=== PATIENT | female | born 1975 | race Caucasian/White ===

== ENCOUNTER 2020-12-19 00:12 | Emergency (ER) | payer OTHER ==
[2020-12-19 00:18] VITALS: RESP 16
--- NOTE | 2020-12-19 00:54 | ED ---
Chest Pain HPI - General Chief Complaint: Chest Pain Stated Complaint: Chest Pain Time Seen by Provider: 12/19/20 00:22 Source: patient Mode of arrival: wheelchair Limitations: no limitations - History of Present Illness MD Complaint: chest pain Onset/Timin -: hour(s) Onset: during rest Pain Location: substernal Pain Radiation: RUE Severity: moderate Quality: dull Consistency: constant Improves With: nothing Worsens With: inspiration Treatments Prior to Arrival: none - Related Data On Oral Contraceptives: No Home Medications Medication Instructions Recorded Confirmed Omeprazole [PriLOSEC] 10 mg PO AC-BID 05/21/15 05/21/15 Previous Rx's Medication Instructions Recorded Erythromycin Ophth Oint [Romycin 1 applic LEFT EYE QID #1 tube 05/21/15 Ophth Oint] Ibuprofen [Motrin] 600 mg PO Q8HR PRN #12 tab 05/21/15 traMADol HCl [Ultram] 50 mg PO Q6H PRN #8 tab 05/21/15 Allergies Allergy/AdvReac Type Severity Reaction Status Date / Time Penicillins Allergy Rash/Hives Verified 12/19/20 00:14 Review of Systems ROS Statement: Those systems with pertinent positive or pertinent negative responses have been documented in the HPI. ROS Other: All systems not noted in ROS Statement are negative. Constitutional: Denies: fever, chills Respiratory: Denies: cough, dyspnea Cardiovascular: Reports: chest pain. Denies: palpitations, orthopnea, edema, syncope Gastrointestinal: Denies: abdominal pain, nausea, vomiting, diarrhea Genitourinary: Denies: dysuria, hematuria Musculoskeletal: Denies: back pain Skin: Denies: rash Neurological: Denies: headache, weakness, numbness EKG Findings - EKG Comments: EKG Findings:: Possible old anterior infarct. - EKG Results: EKG: interpreted by ERMD, sinus rhythm (Rate 87 bpm), normal axis, normal ST/T Past Medical History Past Medical History: GERD/Reflux History of Any Multi-Drug Resistant Organisms: None Reported Past Surgical History: Tubal Ligation Past Psychological History: No Psychological Hx Reported Smoking Status: Never smoker Past Alcohol Use History: Occasional Past Drug Use History: None Reported General Exam Limitations: no limitations General appearance: alert, in no apparent distress Head exam: Present: atraumatic, normocephalic Eye exam: Present: normal appearance. Absent: scleral icterus, conjunctival inj ection ENT exam: Present: normal oropharynx Neck exam: Present: normal inspection, full ROM Respiratory exam: Present: normal lung sounds bilaterally. Absent: respiratory distress, wheezes, rales, rhonchi, stridor Cardiovascular Exam: Present: regular rate, normal rhythm, normal heart sounds. Absent: systolic murmur, diastolic murmur, rubs, gallop GI/Abdominal exam: Present: soft. Absent: distended, tenderness, guarding, rebound, rigid, mass Extremities exam: Present: normal inspection Back exam: Present: normal inspection. Absent: CVA tenderness (R), CVA tenderness (L) Neurological exam: Present: alert Skin exam: Present: warm, dry, intact, normal color. Absent: rash Course Vital Signs 12/19/20 12/19/20 00:14 02:35 Temperature 97.7 F Pulse Rate 93 76 Respiratory 16 16 Rate Blood Pressure 163/97 149/89 O2 Sat by Pulse 100 98 Oximetry Disposition Clinical Impression: Chest pain, Hiatal hernia Disposition: HOME SELF-CARE Condition: Good Instructions (If sedation given, give patient instructions): Chest Pain (ED), Hiatal Hernia (ED) Additional Instructions: As we discussed, the pulmonary nodules can be followed with the water fitness instructor listed below. Is patient prescribed a controlled substance at d/c from ED?: No Referrals: Randy Sandoval MD [Primary Care Provider] - 1-2 days Elizabeth Coronado MD [STAFF PHYSICIAN] - 1-2 days Erik Beckman MD [STAFF PHYSICIAN] - 1-2 days
[2020-12-19 00:57] LABS: Basophils # (A) 0.1 k/uL (0-0.2); Basophils % (A) 1 %; Eosinophils # (A) 0.2 k/uL (0-0.7); Eosinophils % (A) 5 %; HCT 40.2 % (34.0-46.0); HGB 13.7 gm/dL (11.4-16.0); Lymphocytes # (A) 1.1 k/uL (1.0-4.8); Lymphocytes % (A) 22 %; MCH 30.5 pg (25.0-35.0); MCHC 34.1 g/dL (31.0-37.0); MCV 89.5 fL (80.0-100.0); Monocytes # (A) 0.5 k/uL (0-1.0); Monocytes % (A) 10 %; Neutrophils # (A) 3.1 k/uL (1.3-7.7); Neutrophils % (A) 61 %; Platelet Count 270 k/uL (150-450); RBC 4.49 m/uL (3.80-5.40); RDW 13.2 % (11.5-15.5)
--- NOTE | 2020-12-19 00:58 | XR ---
EXAM: XR Chest, 2 Views CLINICAL HISTORY: ITS.REASON XR Reason: Chest Pain TECHNIQUE: Frontal and lateral views of the chest. COMPARISON: No relevant prior studies available. FINDINGS: Lungs: Unremarkable. No consolidation. Pleural space: Unremarkable. No pneumothorax. Heart: There is a 7 cm hiatal hernia projecting behind the heart. Mediastinum: Unremarkable. Bones/joints: Mild degenerative narrowing and osteophytosis in the mid to lower thoracic spine. IMPRESSION: There is a 7 cm hiatal hernia projecting behind the heart. No other acute cardiopulmonary process is identified.
[2020-12-19 01:13] LABS: ALT 14 U/L (4-34); AST 24 U/L (14-36); African American GFR (CKD) >90 (>60 ml/min/1.73 sqM); Albumin 3.2 g/dL (3.5-5.0); Alkaline Phosphatase 80 U/L (38-126); Anion Gap 3 mmol/L; Blood Urea Nitrogen 12 mg/dL (7-17); Calcium 8.8 mg/dL (8.4-10.2); Carbon Dioxide 26 mmol/L (22-30); Chloride 109 mmol/L (98-107); Glucose 119 mg/dL (74-99); Magnesium 1.9 mg/dL (1.6-2.3); Non-African American GFR(CKD) >90 (>60 ml/min/1.73 sqM); Potassium 4.3 mmol/L (3.5-5.1); Sodium 138 mmol/L (137-145); Total Bilirubin 0.3 mg/dL (0.2-1.3); Total Protein 5.7 g/dL (6.3-8.2)
[2020-12-19 01:32] LABS: INR 0.9 (<1.2); Partial Thromboplastin Time 22.1 sec (22.0-30.0); Prothrombin Time 9.8 sec (9.0-12.0)
[2020-12-19 01:53] LABS: D-Dimer 0.63 mg/L FEU (<0.60)
--- NOTE | 2020-12-19 02:31 | CT ---
EXAM: CT Angiography Chest With Intravenous Contrast CLINICAL HISTORY: ITS.REASON CT Reason: possible PE TECHNIQUE: Axial computed tomographic angiography images of the chest with intravenous contrast. CTDI is 32.98 mGy and DLP is 815.7 mGy-cm. This CT exam was performed using one or more of the following dose reduction techniques: automated exposure control, adjustment of the mA and/or kV according to patient size, and/or use of iterative reconstruction technique. MIP reconstructed images were created and reviewed. COMPARISON: No relevant prior studies available. FINDINGS: Pulmonary arteries: The pulmonary arterial tree is well opacified with contrast. No pulmonary emboli are identified. Aorta: The thoracic aorta is nondilated. There is no aneurysm or dissection. Lungs: There are multiple bilateral lower lobe scattered pulmonary nodules ranging in size from 2-6 mm. Pleural space: Unremarkable. No significant effusion. No pneumothorax. Heart: Unremarkable. No cardiomegaly. No significant pericardial effusion. No evidence of RV dysfunction. Mediastinum: There is a hiatal hernia measuring 7.5 cm. There is bilateral hilar lymphadenopathy with multiple lymph nodes measuring up to 1.3 cm short axis diameter. Mild mediastinal lymphadenopathy with the subcarinal lymph node measuring 1.7 cm. Bones/joints: Mild degenerative changes are seen throughout the thoracic spine. No fracture or bone lesion. No dislocation. Soft tissues: Unremarkable. Lymph nodes: See above. IMPRESSION: 1. There is a hiatal hernia measuring 7.5 cm. 2. There is bilateral hilar lymphadenopathy with multiple lymph nodes measuring up to 1.3 cm short axis diameter. Differential considerations include prior granulomatous infection versus sarcoidosis. 3. Multiple small bilateral pulmonary nodules measuring up to 6 mm. Fleischner Society Guidelines for low-risk patients, no follow-up is necessary. For high-risk patients (smoking history or other known risk factors) an optional chest CT at 12 months could be performed.
[2020-12-19 03:48] VITALS: BP 160/91; PULSE 89; TEMP 98.2
== END 2020-12-19 03:47 | disposition home or self-care (01) ==
LOC: EC 00:12
DX: K44.9 Diaphragmatic hernia without obstruction or gangrene (principal); K21.9 Gastro-esophageal reflux disease without esophagitis
CPT/HCPCS: 36415; 93005; 85379; 80053; 83735; 84484; 85025; 85610; 85730; 71046; 71275; 99285; Q9967

== ENCOUNTER → 2021-03-11 | Outpatient (CLI) | payer OTHER ==
--- NOTE | 2021-03-12 08:17 | MM ---
Reason for exam: screening (asymptomatic). Baseline mammogram. History: Took hormonal contraceptives beginning at age 14. Physical Findings: Nurse did not find any significant physical abnormalities on exam. MG Screening Mammo w CAD Bilateral CC, MLO, and XCCL view(s) were taken. The breast tissue is heterogeneously dense. This may lower the sensitivity of mammography. There is a right upper outer quadrant mass at posterior depth and left upper outer quadrant mass at posterior depth and bilateral ultrasound is recommended. ASSESSMENT: Incomplete: need additional imaging evaluation, BI-RAD 0 RECOMMENDATION: Ultrasound of both breasts. [facility] will attempt to contact patient to return for ultrasound.
== END | disposition home or self-care (01) ==
LOC: RADMAMWWP 09:48
PROVIDERS: ATTEND Family Medicine
DX: Z12.31 Encounter for screening mammogram for malignant neoplasm of breast (principal)
CPT/HCPCS: 77067

== ENCOUNTER 2021-03-12 10:35 | Day surgery (SDC) | payer OTHER ==
[2021-03-11 09:19] VITALS: BMI 47.7
[~2021-03-12 10:35] MED LIST: LACTATED RINGERS 1,000 ML IV SCH
[2021-03-12 10:57] VITALS: TEMP 98
[2021-03-12] MEDS ORDERED: LIDOCAINE 1% (10MG/ML) FOR IV START INTRADERMA ONE (10:58)
[2021-03-12] MEDS ORDERED: PROPOFOL 10 MG/ML 20 ML VIAL IV ONE (11:08)
[2021-03-12] MEDS ORDERED: LIDOCAINE 1% INJ 10MG/ML (20 ML MDV) ONE (11:08)
[2021-03-12 11:26] VITALS: PULSE 74
--- NOTE | 2021-03-12 11:30 | P.PCN ---
Date of Procedure: 03/12/21 Description of Procedure: BRIEF HISTORY: Patient is a 46-year-old female presenting for outpatient esophagogastroduodenoscopy for evaluation of symptoms of reflux and GERD. Patient has a long-standing history of heartburn over 10 years. Previous diagnosis of hiatal hernia. Seen in the ER for chest pain cardiac workup was negative patient has been on Protonix therapy with improvement of daily heartburn. PROCEDURE PERFORMED: Esophagogastroduodenoscopy with biopsy. PREOPERATIVE DIAGNOSIS: GERD, heartburn, history of hiatal hernia. ESTIMATED BLOOD LOSS: Minimal. IV sedation per anesthesia. PROCEDURE: After informed consent was obtained, the patient was brought into the endoscopy unit. IV sedation was administered by Anesthesia under continuous monitoring. Initially the Olympus GIF-190 video endoscope was inserted into the mouth. Esophagus intubated without any difficulty. It was gradually advanced into the stomach and duodenum and carefully examined. The bulb and the second part of the duodenum appeared normal, with biopsies taken. The scope at this time was withdrawn to the stomach, adequately insufflated with air, and upon careful examination, mucosa of the antrum, body, cardia and the fundus appeared normal, except for some mild punctate erythema in the antrum and body suggestive of mild gastritis with biopsies taken. The scope was then withdrawn into the esophagus. The GE junction was located at 35 cm from the incisors, with a 2 cm hiatal hernia. Biopsies taken of the lower esophagus. The esophagus appeared normal. There were no erosions or ulcerations seen and the patient tolerated the procedure well. IMPRESSION: 1. Mild Gastritis. 2. Small hiatal hernia. 3. Biopsies of the duodenum, antrum body and lower esophagus. RECOMMENDATIONS: The findings of this examination were discussed with the patient and her family. Okay to resume diet. Okay to resume medications. Await pathology from biopsies. Follow up with primary care physician and in the GI office as scheduled.
[2021-03-12 11:39] VITALS: BP 138/88; RESP 14
== END 2021-03-12 12:08 | disposition home or self-care (01) ==
LOC: ORWHC2ENDO 10:35
PROVIDERS: ATTEND Internal Medicine
DX: D72.820 Lymphocytosis (symptomatic) (principal); K29.50 Unspecified chronic gastritis without bleeding; K44.9 Diaphragmatic hernia without obstruction or gangrene; K21.9 Gastro-esophageal reflux disease without esophagitis; I10 Essential (primary) hypertension; E78.5 Hyperlipidemia, unspecified; Z98.51 Tubal ligation status; Z79.899 Other long term (current) drug therapy; Z88.0 Allergy status to penicillin
CPT/HCPCS: 81025; 88305; 43239; J2001; J2704

== ENCOUNTER → 2021-03-18 | Outpatient (CLI) | payer OTHER ==
--- NOTE | 2021-03-20 13:52 | USB ---
Reason for exam: additional evaluation requested from abnormal screening. History: Took hormonal contraceptives beginning at age 14. Physical Findings: Nurse did not find any significant physical abnormalities on exam. US Breast Workup Limited GENE Right limited breast ultrasound including focal area of concern, retroareolar and axilla demonstrates a 1.1 x 0.9 x 0.9cm cystic lesion at 8 o'clock correlates with palpable and a 0.4 x 0.3 x 0.4cm cystic lesion at 9 o'clock. Left limited breast ultrasound including focal area of concern, retroareolar and axilla demonstrates no cystic or solid lesion seen. These results were verbally communicated with the patient and result sheet given to the patient on 03/18/21. ASSESSMENT: Probably benign, BI-RAD 3 RECOMMENDATION: Follow-up diagnostic mammogram and ultrasound of the left breast in 6 months.
== END | disposition home or self-care (01) ==
LOC: RADUSWWP 09:46
PROVIDERS: ATTEND Family Medicine
DX: N60.01 Solitary cyst of right breast (principal)

== ENCOUNTER 2021-07-13 08:39 | Observation (INO) | payer OTHER ==
[2021-07-09 11:32] VITALS: BMI 47.7
[~2021-07-13 08:39] MED LIST changes: +ACETAMINOPHEN TAB 500 MG TAB PO PRN; +HEPARIN SODIUM,PORCINE/PF 5,000 UNIT/0.5 ML SYRINGE SQ PRN; +ceFAZolin 3 GM in SODIUM CHLORIDE 0.9% 100 ML IVPB PRN
[2021-07-13] MEDS ORDERED: ONDANSETRON 4 MG/2 ML VIAL ONE (09:14)
[2021-07-13 09:19] LABS: Glucose,Whole Blood 85 mg/dL (75-99)
[2021-07-13] MEDS ORDERED: ONDANSETRON 4 MG/2 ML VIAL IVP ONE ×2 (09:22→12:44)
[2021-07-13] MEDS ORDERED: DEXAMETHASONE SOD PHOSPHATE 4 MG/ML 1 ML VIAL IVP ONE (09:22)
[2021-07-13] MEDS ORDERED: MIDAZOLAM 2 MG/2 ML VIAL IVP ONE (09:45)
[2021-07-13] MEDS ORDERED: fentaNYL (PF) 50 MCG/ML 2 ML AMP IVP ONE (09:45)
--- NOTE | 2021-07-13 11:00 | P.GSHP ---
History of Present Illness H&P Date: 07/13/21 Chief Complaint: Incarcerated umbilical hernia 46-year-old female seen in the office 2 months ago. Patient with complaints of a painful bulge at the umbilicus. First noticed 3 years ago. Increasing in size. More pain lately. No change in bowel habits. No nausea or vomiting. Previous tubal ligation through an infraumbilical incision. Past Medical History Past Medical History: GERD/Reflux Additional Past Medical History / Comment(s): umbilical hernia, hiatal hernia,"water retention",hypoglycemia History of Any Multi-Drug Resistant Organisms: None Reported Past Surgical History: Tubal Ligation Past Anesthesia/Blood Transfusion Reactions: No Reported Reaction Additional Past Anesthesia/Blood Transfusion Reaction / Comment(s): no hx blood transfusion Smoking Status: Never smoker - Past Family History Mother Family Medical History: No Reported History Father Family Medical History: Cancer, Pulmonary Embolus Medications and Allergies Home Medications Medication Instructions Recorded Confirmed Type Pantoprazole Sodium 40 mg PO QAM 03/11/21 07/13/21 History Triamterene/Hydrochlorothiazid 1 each PO DAILY 03/11/21 07/13/21 History [Triamterene-Hctz 37.5-25 mg Tb] Aspirin 325 mg PO DAILY PRN 07/09/21 07/13/21 History Allergies Allergy/AdvReac Type Severity Reaction Status Date / Time Penicillins Allergy Rash/Hives Verified 07/13/21 08:59 Surgical - Exam Vital Signs Temp Pulse Resp BP Pulse Ox 97.2 F L 105 H 18 147/99 99 07/13/21 09:06 07/13/21 09:06 07/13/21 09:06 07/13/21 09:06 07/13/21 09:06 Physical exam: General: Well-developed, well-nourished HEENT: Normocephalic, sclerae nonicteric Abdomen: Nontender, nondistended, incarcerated umbilical hernia moderate sized, significant abdominal obesity Extremities: No edema Neuro: Alert and oriented Assessment and Plan (1) Incarcerated umbilical hernia Narrative/Plan: 46-year-old female with incarcerated umbilical hernia. Proceed with open repair with mesh at this time. Risks of bleeding, infection, recurrence, bladder and bowel injury, numbness, nerve injury were discussed with the patient. The patient understands and wishes to proceed. Current Visit: Yes Status: Acute Code(s): K42.0 - UMBILICAL HERNIA WITH OBSTRUCTION, WITHOUT GANGRENE SNOMED Code(s): 356500664
[2021-07-13] MEDS ORDERED: NEOSTIGMINE 1 MG/ML 10 ML VIAL ONE ×2 (11:05)
[2021-07-13] MEDS ORDERED: fentaNYL (PF) 50 MCG/ML 2 ML AMP ONE (11:05)
[2021-07-13] MEDS ORDERED: ROPIVACAINE 5 MG/ML 30 ML VIAL ONE (11:05)
[2021-07-13] MEDS ORDERED: MIDAZOLAM 2 MG/2 ML VIAL ONE (11:05)
[2021-07-13] MEDS ORDERED: GLYCOPYRROLATE 0.2 MG/ML 2 ML VIAL ONE (11:05)
[2021-07-13] MEDS ORDERED: ROCURONIUM 10 MG/ML (5 ML VIAL) IV ONE (11:05)
[2021-07-13] MEDS ORDERED: PROPOFOL 10 MG/ML 20 ML VIAL IV ONE (11:05)
[2021-07-13] MEDS ORDERED: LIDOCAINE 1% INJ 10MG/ML (20 ML MDV) ONE (11:05)
[2021-07-13] MEDS ORDERED: SUCCINYLCHOLINE CHLORIDE VIAL 200 MG/10 ML VIAL IV ONE (11:05)
[2021-07-13] MEDS ORDERED: LACTATED RINGERS 1,000 ML IV ONE ×3 (11:54→12:39)
[2021-07-13] MEDS ORDERED: NALOXONE 0.4 MG/ML 1 ML VIAL IV PRN (12:39)
[2021-07-13] MEDS ORDERED: ACETAMINOPHEN TAB 325 MG TAB PO PRN (12:41)
[2021-07-13] MEDS ORDERED: HYDROmorphone 0.5 MG/0.5 ML SYRINGE IVP PRN (12:41)
[2021-07-13] MEDS ORDERED: ONDANSETRON 4 MG/2 ML VIAL IVP PRN (12:41)
[2021-07-13] MEDS ORDERED: Acetaminophen-Codeine 300-30mg TAB PO PRN (12:41)
[2021-07-13] MEDS ORDERED: ONDANSETRON ODT 4 MG TAB PO ONE (12:44)
--- NOTE | 2021-07-13 12:45 | P.OP ---
Date of Procedure: 07/13/21 Procedure(s) Performed: PREOPERATIVE DIAGNOSIS: Incarcerated umbilical POSTOPERATIVE DIAGNOSIS: Same PROCEDURE: Repair incarcerated umbilical hernia with mesh, partial omentectomy SURGEON: Dr. Meade ANESTHESIA: General OPERATIVE PROCEDURE DETAILS: PREOPERATIVE DIAGNOSIS: Umbilical hernia POSTOPERATIVE DIAGNOSIS: Same PROCEDURE: Umbilical herniorrhaphy with mesh SURGEON: Halina EBL: Minimal ANESTHESIA: General COMPLICATIONS: None OPERATIVE PROCEDURE: The patient was placed in the operating table in the supine position. A right sided periumbilical incision was made using the scalpel. The subcutaneous tissues were dissected bluntly and with cautery. The hernia sac was identified. The umbilical attachments to the fascia were divided using electrocautery. The hernia sac was partially excised. The patient had a large amount of omentum that was adherent to the hernia sac. Electrocautery was used to divide these adhesions. This would not reduce back into the peritoneal cavity. A portion of the omentum was excised using LigaSure. The remainder of the omentum was unable to be reduced without difficulty. What was left of the hernia sac was closed using a running locking 2-0 Vicryl suture. This was reduced back into the abdominal cavity. The edges of the hernia defect were debrided and fresh fascia was encountered circumferentially. The preperitoneal space was then dissected using blunt dissection and electrocautery. The point for cm ventral ex mesh was placed beneath the fascia and sutured in place using trans-fascial 2-0 Nurolon sutures. The defect was closed using interrupted vest over pants 0 Ethibond mattress sutures. The folding edge of the fascia was sutured down using interrupted 0 Ethibond sutures. The subcutaneous tissues were reapproximated using inverted 2-0 & 3-0 Vicryl sutures. The umbilicus was tacked back down to the fascia using a 2-0 Vicryl suture. The skin was closed using 4-0 Monocryl sutures. Skin glue and sterile dressings were then applied. DISPOSITION: Stable to recovery room HERNIA CHARACTERISTICS: Length: 3 cm Width: 2 cm Type: Incarcerated umbilical TYPE OF MESH USED: Ventral X6.4 centimeter LOCATION OF MESH: Sub-lay FIXATION: Trans-fascial 2-0 Nurolon sutures DISPOSITION: Stable to recovery room
[2021-07-13] MEDS ORDERED: diphenhydrAMINE 50 MG/ML 1 ML VIAL ONE (13:05)
[2021-07-13] MEDS ORDERED: diphenhydrAMINE 50 MG/ML 1 ML VIAL IVP ONE ×2 (13:08→13:30)
[2021-07-13] MEDS ORDERED: HYDROmorphone 0.5 MG/0.5 ML SYRINGE IVP ONE (13:11)
[2021-07-13 14:05] VITALS: RESP 18
--- NOTE | 2021-07-13 15:15 | P.ANPRN ---
Procedure Note - Anesthesia - Nerve Block Performed Bilateral Rectus Abdominis Single Time Out Performed: Yes ([id number]) Date of Procedure: 07/13/21 Procedure Start Time: 09:46 Procedure Stop Time: 09:55 Location of Patient: PreOp Indication: Acute Post-Operative Pain, Requested by Surgeon Specifically requested for management of pain by DrRakel: Edwardo Meade Sedation Type: Sedate with meaningful contact maintained Preparation: Sterile Prep Position: Supine Catheter: None Needle Types: Pajunk Needle Gauge: 21 Ultrasound used to visualize needle placement: Yes Ultrasound used to observe medication spread: Yes Injectate: 0.5% Ropivacaine (see comment for volume) (15cc each side) Blood Aspirated: No Pain Paresthesia on Injection Noted: No Resistance on Injection: Normal Image Stored and Saved: Yes Events: Uneventful and Well Tolerated
[2021-07-13] MEDS: KETOROLAC 30 MG/ML 1 ML VIAL IVP SCH ×2 (17:56→23:23)
[2021-07-13] MEDS: HEPARIN SODIUM,PORCINE/PF 5,000 UNIT/0.5 ML SYRINGE SQ SCH ×2 (17:57→23:24)
[2021-07-13] MEDS: DOCUSATE 100 MG CAP PO SCH (19:46)
[2021-07-13] MEDS: FAMOTIDINE 20 MG TAB PO SCH (19:46)
[2021-07-14 04:28] VITALS: BP 146/75; TEMP 97.8
[2021-07-14] MEDS: KETOROLAC 30 MG/ML 1 ML VIAL IVP SCH (05:30)
[2021-07-14] MEDS: HEPARIN SODIUM,PORCINE/PF 5,000 UNIT/0.5 ML SYRINGE SQ SCH (08:19)
[2021-07-14] MEDS: FAMOTIDINE 20 MG TAB PO SCH (08:19)
[2021-07-14] MEDS: DOCUSATE 100 MG CAP PO SCH (08:19)
[2021-07-14] MEDS ORDERED: BENZOCAINE/MENTHOL LOZENG 1 EACH LOZENGE MUCOUS MEM PRN (08:29)
--- NOTE | 2021-07-14 11:26 | P.DS ---
<Peggy Moon - Last Filed: 07/14/21 11:04> Providers Expected date of discharge: 07/14/21 Hospital Course: Postoperative diagnosis: 1. Repair of incarcerated umbilical hernia with mesh, partial omentectomy Course: 46-year-old female who came in for outpatient repair of incarcerated umbilical hernia. Patient had been complaining of painful bulge at the umbilicus that had been worsening. Yesterday the patient underwent repair of incarcerated umbilical hernia with mesh and a partial omentectomy. Today she is seen and examined. Patient states abdominal pain well controlled with Toradol. She's been up and ambulating. She is passing gas but no bowel movement. She is tolerating a regular diet. She's been afebrile. Incision with dressing clean dry and intact. The impression and plan of care has been dictated as directed. Dr. Meade I performed a history and examination of this patient, discussed the same with the dictator. I agree with the dictator's note ,documented as a scribe. Any additional findings or plans will be noted. Procedures: Procedure Performed: 1. Repair of incarcerated umbilical hernia with mesh, partial omenectomy Patient Condition at Discharge: Good Plan - Discharge Summary Discharge Rx Participant: Yes New Discharge Prescriptions: New Acetaminophen-Codeine 300-30mg [Tylenol w/codeine #3] 1 tab PO Q4H PRN 3 Days #6 tablet PRN Reason: Pain Benzocaine/Menthol Lozeng [Cepacol lozenge] 1 each MUCOUS MEM Q6HR PRN lozenge PRN Reason: Sore Throat Docusate [Colace] 100 mg PO BID cap Ibuprofen [Motrin] 600 mg PO QID 7 Days #28 tab Continue Triamterene/Hydrochlorothiazid [Triamterene-Hctz 37.5-25 mg Tb] 1 each PO DAILY Aspirin 325 mg PO DAILY PRN PRN Reason: Pain Pantoprazole Sodium 40 mg PO QAM Discharge Medication List Pantoprazole Sodium 40 mg PO QAM 03/11/21 [History] Triamterene/Hydrochlorothiazid [Triamterene-Hctz 37.5-25 mg Tb] 1 each PO DAILY 03/11/21 [History] Aspirin 325 mg PO DAILY PRN 07/09/21 [History] Acetaminophen-Codeine 300-30mg [Tylenol w/codeine #3] 1 tab PO Q4H PRN 3 Days #6 tablet 07/13/21 [Rx] Benzocaine/Menthol Lozeng [Cepacol lozenge] 1 each MUCOUS MEM Q6HR PRN lozenge 07/14/21 [Rx] Docusate [Colace] 100 mg PO BID cap 07/14/21 [Rx] Ibuprofen [Motrin] 600 mg PO QID 7 Days #28 tab 07/14/21 [Rx] Follow up Appointment(s)/Referral(s): Edwardo Meade MD [Medical Doctor] - 07/22/21 3:30 pm Patient Instructions/Handouts: Umbilical Hernia Repair (DC) Activity/Diet/Wound Care/Special Instructions: Regular diet No heavy lifting greater than 10 pounds for at least the next 2 weeks and cleared by surgeon May shower. No tub bathing or soaking for the next 2 weeks and cleared by surgeon Discharge Disposition: HOME SELF-CARE <Edwardo Meade - Last Filed: 07/14/21 13:13> Providers Date of admission: 07/14/21 03:02 Attending physician: Edwardo Meade Primary care physician: Randy Sandoval - Discharge Diagnosis(es) (1) Incarcerated umbilical hernia Current Visit: Yes Status: Acute Hospital Course: As above. Patient doing well today. May discharge. Follow-up one week.
[2021-07-14 11:38] VITALS: PULSE 80
[2021-07-14] MEDS ORDERED: IBUPROFEN 600 MG TAB PO SCH (13:00)
== END 2021-07-14 14:31 | disposition home or self-care (01) ==
LOC: OR 08:39 → 5NMEDONC 12:40 → OR 07-14 03:02
PROVIDERS: ADMIT Surgery; ATTEND Surgery
DX: K42.0 Umbilical hernia with obstruction, without gangrene (principal); K21.9 Gastro-esophageal reflux disease without esophagitis; Z20.822 Contact with and (suspected) exposure to COVID-19; Z79.82 Long term (current) use of aspirin; Z88.0 Allergy status to penicillin; Z98.51 Tubal ligation status; K44.9 Diaphragmatic hernia without obstruction or gangrene; Z80.9 Family history of malignant neoplasm, unspecified; Z82.49 Family history of ischemic heart disease and other diseases of the circulatory system
CPT/HCPCS: 49587; 64999; 88305; 87635; G0378 ×2; C1781; J2250; J0330; J1200; J1100; J2710; J0690; J2405; J2001; J3010; J1885 ×2; J2795; J2704; J1170; J1644 ×2

== ENCOUNTER → 2021-09-04 | Outpatient (CLI) | payer OTHER ==
--- NOTE | 2021-09-04 13:17 | CT ---
EXAMINATION TYPE: CT chest w con DATE OF EXAM: 09/04/2021 COMPARISON: 12/19/2020 HISTORY: 46-year-old female f/u nodules TECHNIQUE: Contiguous axial scanning of the chest after the administration of 100 mL of Isovue 300. Coronal/sagittal reconstructions performed. CT DLP: 617.2mGycm. Automatic exposure control utilized for a dose reduction. FINDINGS: Heart normal size without pericardial effusion. Aorta normal caliber with conventional arch vessel branching anatomy. The hilar lymphadenopathy seen previously shows considerable improvement. No lymph nodes remain enlar ged by size criteria. 4 mm peripheral right basilar pulmonary nodule, axial image 51 is smaller. A tiny residual 3 mm posterior left lower lobe pulmonary nodule, axial image 44 is smaller. Multiple additional pulmonary nodules seen previously have resolved Redemonstrated moderate to large hiatal hernia involving approximately half of the stomach. Visualize d upper abdomen otherwise shows no gross abnormality. Bones: No osseous destructive process. IMPRESSION: 1. Interval resolution of previous bilateral hilar lymphadenopathy. 2. Most of the previous pulmonary nodules have resolved. A couple tiny residual nodules measuring up to 4 mm remain, one at each lung base. An additional one-year follow-up CT can reassess. 3. Overall findings suggest an infectious/inflammatory etiology such as sarcoidosis or atypical funga l/mycobacterial infection. 4. Redemonstrated moderate to large hiatal hernia involving half of the stomach.
== END | disposition home or self-care (01) ==
LOC: RADCTMAIN 11:22
PROVIDERS: ATTEND Internal Medicine
DX: R91.8 Other nonspecific abnormal finding of lung field (principal); K44.9 Diaphragmatic hernia without obstruction or gangrene
CPT/HCPCS: 71260; Q9967

== ENCOUNTER → 2021-09-24 | Outpatient (CLI) | payer OTHER ==
--- NOTE | 2021-09-25 08:22 | MM ---
Reason for exam: follow-up at short interval from prior study. Last mammogram was performed 6 months ago. History: Took hormonal contraceptives beginning at age 14. Physical Findings: Nurse did not find any significant physical abnormalities on exam. MG 3D Diag Mammo W/Cad LT CC and MLO view(s) were taken of the left breast. Prior study comparison: March 11, 2021, bilateral MG screening mammo w CAD. There are scattered fibroglandular densities. Stable for 6 months upper outer quadrant focal asymmetry likely global asymmetry. 5mm circumscribed nodular posterior lower inner quadrant may be been outside the field of view previously, cyst suspected. These results were verbally communicated with the patient and result sheet given to the patient on 09/24/21. ASSESSMENT: Incomplete: need additional imaging evaluation, BI-RAD 0 RECOMMENDATION: Ultrasound of the left breast.
--- NOTE | 2021-09-25 08:24 | USB ---
Reason for exam: additional evaluation requested from abnormal screening. History: Took hormonal contraceptives beginning at age 14. US Breast LT Technologist: Daisy Chen Left complete breast ultrasound includes all four quadrants, the retroareolar region and axilla. Finding demonstrates a 2.8 x 2.0 x 1.5cm heterogeneous echogenic lesion at 2 o'clock, the appearance of focal dense tissue. The 5mm probable cyst lower inner quadrant not seen by ultrasound. Ongoing follow up recommended. These results were verbally communicated with the patient and result sheet given to the patient on 09/24/21. ASSESSMENT: Probably benign, BI-RAD 3 RECOMMENDATION: Follow-up diagnostic mammogram of both breasts in 6 months.
== END | disposition home or self-care (01) ==
LOC: RADMAMWWP 14:01
PROVIDERS: ATTEND Family Medicine
DX: R92.8 Other abnormal and inconclusive findings on diagnostic imaging of breast (principal)
CPT/HCPCS: 77065; 76641; G0279; 77061

== ENCOUNTER → 2022-03-19 | Outpatient (CLI) | payer OTHER ==
--- NOTE | 2022-03-19 11:35 | MM ---
Reason for Exam: Follow-up at short interval from prior study. Last screening mammogram was performed 12 month(s) ago. Patient History: Menarche at age 11. First Full-Term at age 19. Hormonal Contraceptives, from age 14 until age 28. Risk Values: Leti 5 year model risk: 0.8%. NCI Lifetime model risk: 8.3%. Prior Study Comparison: 03/11/2021 Bilateral Screening Mammogram, [facility]. 03/18/2021 Bilateral Diagnostic Ultrasound, [facility]. 09/24/2021 Left Diagnostic Mammogram, [facility]. Tissue Density: The breast tissue is heterogeneously dense. This may lower the sensitivity of mammography. Findings: Analyzed By CAD. Focal asymmetry in the upper outer aspect left breast appear stable. No significant interval changes are evident. Previous nodule posterior inferior left breast is stable. Overall Assessment: Benign, BI-RAD 2 Management: Screening Mammogram of both breasts in 1 year. A clinical breast exam by your physician is recommended on an annual basis and results should be correlated with mammographic findings. This exam should not preclude additional follow-up of suspicious palpable abnormalities. Results were given to the patient verbally at the time of exam. Electronically signed and approved by: Matthew Saeed D.O. Radiologis
== END | disposition home or self-care (01) ==
LOC: RADMAMWWP 10:52
PROVIDERS: ATTEND Family Medicine
DX: R92.8 Other abnormal and inconclusive findings on diagnostic imaging of breast (principal)
CPT/HCPCS: 77066; G0279; 77062

== ENCOUNTER → 2023-03-29 | Outpatient (CLI) | payer OTHER ==
--- NOTE | 2023-03-30 08:04 | MM ---
Reason for Exam: Screening (asymptomatic). Last mammogram was performed 1 year(s) and 1 month(s) ago. Patient History: Menarche at age 11. First Full-Term at age 19. Hormonal Contraceptives, from age 14 until age 28. Last menstrual period: 02/23/2023 Risk Values: Leti 5 year model risk: 0.8%. NCI Lifetime model risk: 8.2%. Prior Study Comparison: 03/11/2021 Bilateral Screening Mammogram, [facility]. 09/24/2021 Left Diagnostic Mammogram, [facility]. 03/19/2022 Bilateral MG 3D diag mammo w/cad GENE, [facility]. Tissue Density: The breast tissue is heterogeneously dense. This may lower the sensitivity of mammography. Findings: Analyzed By CAD. There is no suspicious group of microcalcifications or new suspicious mass in either breast. Overall Assessment: Benign, BI-RAD 2 Management: Screening Mammogram of both breasts in 1 year. . Patient should continue monthly self-breast exams. A clinical breast exam by your physician is recommended on an annual basis. This exam should not preclude additional follow-up of suspicious palpable abnormalities. Note on Leti scores and lifetime risk: 1. A Leti score greater than 3% is considered moderate risk. If this is the case, consider specialist referral to assess eligibility for a risk reducing agent. 2. If overall lifetime risk for the development of breast cancer is 20% or higher, the patient may qualify for future screening with alternating mammogram and breast MRI. Electronically signed and approved by: Robbi Berger M.D. Radiologis
== END | disposition home or self-care (01) ==
LOC: RADMAMWWP 13:54
PROVIDERS: ATTEND Family Medicine
DX: Z12.31 Encounter for screening mammogram for malignant neoplasm of breast (principal)
CPT/HCPCS: 77063; 77067

== ENCOUNTER → 2024-04-03 | Outpatient (CLI) | payer OTHER ==
--- NOTE | 2024-04-25 22:02 | MM ---
Reason for Exam: Screening (asymptomatic). Last screening mammogram was performed 12 month(s) ago. Patient History: Menarche at age 11. First Full-Term at age 19. Premenopausal. Patient has history of breast feeding. Hormonal Contraceptives, from age 14 until age 28. Last menstrual period: 02/13/2024 Risk Values: Leti 5 year model risk: 0.9%. NCI Lifetime model risk: 8.0%. Prior Study Comparison: 09/24/2021 Left Diagnostic Mammogram, [facility]. 03/19/2022 Bilateral MG 3D diag mammo w/cad [facility], [facility]. 03/29/2023 Bilateral MG 3D screening mammo w/cad, [facility]. Tissue Density: There are scattered areas of fibroglandular density. Findings: Analyzed By CAD. Unchanged bilateral areas of asymmetric density. There is no suspicious group of microcalcifications or new suspicious mass in either breast. Overall Assessment: Benign, BI-RAD 2 Management: Screening Mammogram of both breasts in 1 year. . Patient should continue monthly self-breast exams. A clinical breast exam by your physician is recommended on an annual basis. This exam should not preclude additional follow-up of suspicious palpable abnormalities. Note on Leti scores and lifetime risk: 1. A Leti score greater than 3% is considered moderate risk. If this is the case, consider specialist referral to assess eligibility for a risk reducing agent. 2. If overall lifetime risk for the development of breast cancer is 20% or higher, the patient may qualify for future screening with alternating mammogram and breast MRI. Electronically signed and approved by: Jeri George M.D. Radiologist
== END | disposition home or self-care (01) ==
LOC: RADMAMWWP 12:00
PROVIDERS: ATTEND Family Medicine
DX: Z12.31 Encounter for screening mammogram for malignant neoplasm of breast
CPT/HCPCS: 77063; 77067

== ENCOUNTER → 2024-04-03 | Outpatient (CLI) | payer OTHER ==
--- NOTE | 2024-04-25 13:05 | XR ---
Site ID [facility] Patient Zaira Alexandra J ID [id number] 1975 Age/Gender: 49Y, F Order # [id number] Procedure XR knee complete bilateral Date 04/03/2024 2:53:02 PM Reason BILATERAL KNEE PAIN EXAMINATION TYPE: XR knee complete bilateral DATE OF EXAM: 04/03/2024 INDICATION: Patient age:Female; 49 years old; Reason for study: BILATERAL KNEE PAIN; [facility]. COMPARISON: None. TECHNIQUE: Both knee(s) were examined in Frontal, lateral and oblique projections. FINDINGS: No evidence of any acute osseous pathology, soft tissue swelling, or joint effusion is no aaron. Bilateral medial femorotibial and patellofemoral joint space narrowing with marginal spurring de monstrated. IMPRESSION: 1. No acute osseous pathology. 2. Mild bilateral osteoarthritic changes.
--- NOTE | 2024-05-07 14:08 | XR ---
Patient: Zaira Alexandra J Ordering Physician: Unknown, Unknown ID: [id number] Phone, Pager: Phone: N /A Pager: N/A : 1975 Age/Gender: 49Y, F Primary Location: N/A Procedure: XR lumbosacral spine min 4V Study Date: 04/03/2024 2:44:00 PM EXAMINATION TYPE: XR lumbosacral spine min 4V DATE OF EXAM: 04/15/2024 12:24 PM CLINICAL INDICATION: Pain COMPARISON: None TECHNIQUE: XR lumbosacral spine min 4V - Frontal, lateral , bilateral oblique and coned in L5-S1 late ral views of the spine. FINDINGS: No evidence of any acute osseous pathology. No evidence of loss of vertebral body height i s seen. There is normal alignment of the lumbar vertebral bodies. Mild scattered disc space narrowing . Multilevel marginal osteophyte formation throughout the visualized spine. There is facet joint arth ropathy throughout the spine. Scattered at least mild neural foraminal stenosis. IMPRESSION: 1. No acute fracture. 2. Mild to moderate multilevel disc degeneration.
--- NOTE | 2024-05-07 14:08 | XR ---
Patient: Zaira Alexandra J Ordering Physician: Unknown, Unknown ID: [id number] Phone, Pager: Phone: N /A Pager: N/A : 1975 Age/Gender: 49Y, F Primary Location: N/A Procedure: XR thoracic spine com plete Study Date: 04/03/2024 2:37:00 PM EXAMINATION TYPE: XR thoracic spine complete DATE OF EXAM: 04/15/2024 12:23 PM CLINICAL INDICATION: Pain COMPARISON: None TECHNIQUE: XR thoracic spine complete views of the spine in Frontal and lateral projections. FINDINGS: No evidence of acute fracture. There is scattered multilevel disk space narrowing without loss of ve rtebral body height. There is normal alignment of the thoracic vertebral bodies. Scattered osteophyte formation along the anterior and lateral aspects of the vertebral bodies. Neural foramen are patent given limitations of this exam. Spinal canal appears patent. IMPRESSION: 1. No acute osseous pathology. 2. [id number] multilevel degeneration changes of the spine.
== END | disposition home or self-care (01) ==
LOC: RADXRMAIN 14:12
PROVIDERS: ATTEND Family Medicine
CPT/HCPCS: 72072; 72110